=== PATIENT | male | born 1945 | race Caucasian/White ===

== ENCOUNTER 2017-04-09 10:52 | Emergency (ER) | payer MEDICARE ==
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
[2017-04-09 11:37] LABS: BASO % 0.4 % (0-6); EOS % 0.3 % (0-6); GRAN % 77.9 % (47-80); HEMATOCRIT 31.8 % (42.0-52.0); HEMOGLOBIN 9.8 gm/dl (14.0-18.0); LYMPH % 13.7 % (16-45); MEAN CELL VOLUME 99.1 fl (81-97); MEAN CORPUSCULAR HEMOGLOBIN 30.5 pg (27-33); MEAN CORPUSCULAR HGB CONC 30.8 g/dl (32-36); MEAN PLATELET VOLUME 10.5 fl (7.4-10.4); MONO % 7.7 % (0-9); PLATELET COUNT 313 K/uL (130-400); RED BLOOD COUNT 3.21 M/uL (4.40-5.70); RED CELL DISTRIBUTION WIDTH 14.8 % (11.5-14.5); WHITE BLOOD COUNT W/O DIFF 7.5 K/uL (4.2-12.2)
[2017-04-09 11:50] LABS: INR 1.05; PARTIAL THROMBOPLASTIN TIME 20.3 SECONDS (24.5-39.1); PROTHROMBIN TIME (PATIENT) 11.4 SECONDS (9.5-12.1)
[2017-04-09 11:51] LABS: BILIRUBIN,TOTAL 0.3 mg/dL (0.2-1.0); TOTAL PROTEIN 7.2 g/dL (6.6-8.7)
[2017-04-09 11:56] LABS: ALB/GLOB RATIO 1.1 (1.1-1.8); ALBUMIN 3.7 g/dL (4.0-5.0)
[2017-04-09] MEDS ORDERED: ASPIRIN 81 MG CHEWABLE TABLET PO ONE (12:02)
[2017-04-09 12:47] LABS: CKMB 14.7 ng/mL (<6.73); CKMB RELATIVE INDEX 1.8 % (0-4)
--- NOTE | 2017-04-09 22:41 | RADIOLOGY REPORT ---
EXAM: CHEST AP or PA ONLY HISTORY: DIFFICULTY IN BREATHING. TECHNIQUE: A single view of the chest was performed. FINDINGS: Heart size is normal. Lungs are hyperinflated. No infiltrate or pleural effusion. IMPRESSION: NEGATIVE FOR ACUTE PROCESS. JOB NUMBER: [id number] MTDD
== END 2017-04-09 14:11 | disposition short-term general hospital (02) ==
LOC: ER 10:52
DX: R07.2 Precordial pain (principal); R79.89 Other specified abnormal findings of blood chemistry; R06.02 Shortness of breath; D64.9 Anemia, unspecified; I10 Essential (primary) hypertension; E11.9 Type 2 diabetes mellitus without complications; Z79.4 Long term (current) use of insulin
CPT/HCPCS: 71010; 80053; 82550; 82553; 83880; 84484; 85025; 85610; 85730; 93005; 93010; 99285